=== PATIENT | female | born 1930 | race Caucasian/White ===

== ENCOUNTER → 2016-11-12 | Outpatient (CLI) | payer MEDICARE, OTHER ==
[~2016-11-12] MED LIST: AMLODIPINE BES2.5 MG PO; ASPIRIN EC81 MG PO; CALTRATE 600 +1 EAC1 PO; CENTRUM SILVER1 TAB PO; CYMBALTA60 MG PO; HYDROCODON-ACE1 EAC2 PO; HYDRODIURIL25 MG PO; LYRICA 50MG CAP50 MG PO; MOBIC15 MG PO; PROTONIX20 MG PO; TOPROL XL 5050 MG PO; ZESTRIL40 MG PO
--- NOTE | ~2016-11-12 | ESTC ---
Cardiac Perfusion Imaging Demographics Patient Name TAD Salcido Gender Female Patient Number [id number] Race Visit Number [id number] Ethnicity [employer] ID Room Number Accession Number [id number] Height 63 inches Date of 1930 Weight 152 pounds Patrice Chou MD Interpreting Nate Coto Date of study 11/12/2016 Physician Supervising /REMIGIO NM Technologist Arianne Simmons Ordering Physician Patrice Chou MD reliability technicians Stress ECG Reading Mily Redman APRN Nurse Lamonte Dixon Physician RN Dionne Saravia RN The procedure was explained in detail to the patient. Risks, complications and alternative treatments were reviewed. Written consent was obtained. Medications Reviewed with Patient prior to Procedure. Procedure Procedure Type: Nuclear Stress Test:Pharmacological, Lexiscan, Cardiolite Stress Test Procedure Start time: 11/12/2016 00:00 Indications: Syncope. Risk Factors The patient risk factors include:hypertension. Conclusions Summary Perfusion Images: The overall quality of the study is good. Left ventricular cavity is noted to be normal on the stress and normal on the rest images. There is no evidence of abnormal lung activity. The right ventricle is not visualized an cannot be assessed. Impression ECG portion of lexiscan stress test is clinically negative for ischemia by diagnostic criteria. Myocardial perfusion imaging is normal. Overall left ventricular systolic function was normal without regional wall motion abnormalities. Calculated LVEF is 74% and TID ratio is 1.24. Stress Protocols Resting ECG Normal sinus rhythm. Pre-stress physical exam: Patient assessed by Annabella HERNANDEZ prior to testing. Chest - CTA Cardio - RRR, S1, S2 Predicted HR: 135 bpm HR response: Appropriate BP response: Appropriate Reason for termination:Infusion complete ECG Findings No ECG changes suggestive of ischemia. Arrhythmias No rhythm abnormality. Symptoms No symptoms with Lexiscan infusion. Complications Procedure complication: None. Stress Interpretation Appropriate hemodynamic response to Lexiscan. No significant ST-T wave changes with Lexiscan. ECG portion is negative for ischemia by diagnostic criteria. Will correlate with nuclear images. Imaging Results Applied corrections - Motion correction applied Summed scores - Summed stress score: 4 - Summed rest score: 2 - Summed difference score: 2 Stress ejection Ejection fraction:74 % EDV :74 ml ESV :19 ml Stroke volume :55 ml LV mass :105 gr Imaging Protocols Rest Stress Isotope:Tc99m Sestamibi IV Isotope: Tc99m Sestamibi IV Isotope dose:10.8 mCi Isotope dose:32.37 mCi Date:11/12/2016 07:21 Date:11/12/2016 09:07 Technique: SPECT Technique: Gated Supine SPECT Supine Scan Time:45-60 minutes post Scan Time:45-60 minutes post injection injection Procedure Medications - Regadenoson (Lexiscan) 0.4 mg IV over 10-15 sec. I.V. . Medications administered per verbal order and read back to physician prior to administration. Medical History Admission Data Admission date: 11/12/2016 Admission Time: 06:55 Hospital Status: Outpatient. Signatures dtt: MARY KAY MENDEZ dtd: 11/12/16 0000 Physician Self Edit
== END | disposition disaster alternative care site (69) ==
LOC: GRAD 06:55
DX: R55 Syncope and collapse (principal); I10 Essential (primary) hypertension
CPT/HCPCS: A9500; J2785

== ENCOUNTER 2016-11-21 06:54 | Outpatient (CLI) | payer MEDICARE, OTHER ==
[~2016-11-21] VITALS: Ht 160 cm; Wt 65.1 kg
--- NOTE | ~2016-11-21 | CATH ---
Cardiac Diagnostic Report Demographics Patient Name TAD Salcido Gender Female Date of 1930 Age 86 year(s) Patient Number [id number] Date of Study 11/21/2016 Visit Number [id number] Room Number G63[address] [place] [id number] Ht 160.02 cm Wt 65.1 kg Referring Jessica Chou MD Primary Physician Physician Performing Efstratiou Secondary Physician Physician Kendy Chou MD Diagnostic Efstratiou Assisting Physician Physician Kendy Chou MD Interventional Physician Siphoner Physician Findings and Conclusions Diagnostic Findings and Conclusion R Radial approach impossible due to extreme looping. No significant coronary stenosis. Diagnostic Recommendations Hypertension control. Procedure Description The patient was brought to the diagnostic cardiac catheterization-EP laboratory in the fasting, non-sedated state. Informed consent was obtained in the written and verbal form after the risks and benefits were explained. The patient had no further questions and agreed to proceed. The planned puncture-incision site(s) were shaved and prepped with ChloraPrep and draped in the usual sterile manner. Conscious sedation, supplemental oxygen, and pain control medications were delivered by a registered nurse under physician guidance. Surface ECG rhythm, blood pressure measurement, and pulse oximetry were monitored throughout the procedure. Arterial access. The access site was infiltrated with lidocaine. The vessel was entered with the Seldinger technique. A sheath was advanced into the vessel and used for catheter placement. Selective left coronary angiography. A catheter was advanced into the left coronary vessel ostium under Fluoroscopic guidance. Contrast was injected by hand. Images were obtained in multiple projections. Selective right coronary angiography. A catheter was advanced into the right coronary vessel ostium under fluoroscopic guidance. Contrast was injected by hand. Images were obtained in multiple projections. Arterial artery hemostasis was achieved. The patient was transferred to a regular nursing floor via cart accompanied by a nurse. The patient left the laboratory in stable condition. Diagnostic Cath Status: Elective Procedure Procedure Type Diagnostic procedure:Angiography:, Coronary Angios Indications: Chest pain and Syncope. The procedure was explained in detail to the patient. Risks, complications and alternative treatments were reviewed. Written consent was obtained. Medications Reviewed with Patient prior to Procedure. Angiographic Findings Dominance: Right Cardiac Arteries and Lesion Findings LMCA: Normal (0% Stenosis). LAD: Normal (0% Stenosis). LCx: Normal (0% Stenosis). RCA: Normal (0% Stenosis). Graft Lesions Lesion on : Procedure Data Procedure Date Date: 11/21/2016Start: 09:55 AMEnd: 10:27 AM Entry Locations - Retrograde Percutaneous access was performed through the Right Radial artery. A 6 Fr sheath was inserted. Hemostasis was successfully obtained using Mechanical Compression. Closure Comments: R band deployed by Judd Rebollar with 22 cc air.. - Retrograde Percutaneous access was performed through the Right Femoral artery (Primary location). A 6 Fr sheath was inserted. Hemostasis was successfully obtained using Angio-Seal STS PLUS (St. Dinesh). Closure Comments: Deployed by Dr. Ibrahim.. Procedure Medications Order and Administration + + +-------+-------+ !Time !Medication !Dosage !Route ! + + +-------+-------+ !11/21/2016 !Fentanyl !25 mcg !I.V. ! !09:55 AM ! ! ! ! + + +-------+-------+ !11/21/2016 !PAE Radial Cocktail: Heparin 5000 units, ! !I.A. ! !09:58 AM !Nitroglycerin 200mcg, Verapamil 3 mg ! ! ! ! !(ACC_3) ! ! ! + + +-------+-------+ !11/21/2016 !Fentanyl !25 mcg !I.V. ! !10:13 AM ! ! ! ! + + +-------+-------+ !11/21/2016 !Oxygen !2 l/min!NC ! !10:13 AM ! ! ! ! + + +-------+-------+ Devices Used - A6 Fr. BS JR 4 Diag. Catheterwas used for:Right coronary angiography. - A4 Fr. Straight Glidecathwas used for:Upper Extremity. - A6 Fr. BS JR 4 Diag. Catheterwas used for:Right coronary angiography. - A6 Fr. BS JL 3.5 Diag. Catheterwas used for:Left coronary angiography. Contrast Material - Isovue 62640 ml Fluoroscopy Time: Diagnostic: 6:24 minutes. Total: 6:24 minutes. Fluoroscopy Dose: Diagnostic: 229 mGy. Total: 229 mGy. Estimated Blood Loss: 20 ml. Medical History Performed Procedures and Imaging Results - Stress testing with SPECT MPIwas performed. Results were: Positive. Risk/Extent of ischemia was: Intermediate risk. Allergies - Other:(Tramadol Levofloxacin). Risk Factors The patient risk factors include:hypertension, last creatinine: 1.1 mg/dl and creatinine clearance: 38.43 ml/min. Admission Data Admission Date: 11/21/2016 Admission Time: 06:54 AM Admit Source: Other Insurance Payors: Medicare. Admission Medications + +------+------+ + + + + !Medication !Dosage!Times !Last !Last !Administered !Comments ! ! ! !Per !Delivery !Delivery ! ! ! ! ! !Day !Date !Time ! ! ! + +------+------+ + + + + !Beta Adriel! ! ! ! ! ! ! !(any) ! ! ! ! ! ! ! + +------+------+ + + + + !NURIA ! ! ! ! ! ! ! !Inhibitor ! ! ! ! ! ! ! !(any) ! ! ! ! ! ! ! + +------+------+ + + + + !Aspirin ! ! ! ! ! ! ! !(any) ! ! ! ! ! ! ! + +------+------+ + + + + Clinical Evaluation Leading to Procedure - There were no CAD presentation symptoms. - There were no anginal symptoms. Anti-anginal medications were prescribed during the past two weeks. The medications are: Beta Blockers and Ca channel Blockers. Snapshots Hemodynamics Condition: Rest O2 Consumption: Estimated: 148.20Heart Rate: 68 bpm Pressures (mmHg) +-----+ + !Site !Pressure ! +-----+ + !AO !169/56 (100) ! +-----+ + Shunts Oxygen Values O2 Capacity 148.24 O2 Consumption 148.2 Discharge Data Discharge Date: 11/21/2016 Hospital Status: Outpatient Signatures dtt: Mallory Ibrahim dtd: 11/21/16 0955 Physician Self Edit
[2016-11-21 07:54] LABS: BASOPHIL % 0.5 %; HEMATOCRIT 31.9 % (30.0-46.0); HEMOGLOBIN 10.9 g/dL (10.0-15.0); LYMPHOCYTE # 0.9 K/uL (0.8-4.0); LYMPHOCYTE % 24.3 %; MCH 30.9 pg (27.0-34.0); MCHC 34.2 gm/dL (32.0-36.5); MCV 90.4 fl (83.0-98.0); MONOCYTE # 0.5 K/uL (0.0-1.0); MONOCYTE % 13.4 %; MPV 9.4 fl (9.4-12.4); NEUTROPHIL # (ANC) 2.3 K/uL (1.8-7.8); NEUTROPHIL % 61.8 %; NRBC % 0 /100WBC (0-0.00); PLATELET COUNT 140 K/uL (150-450); RBC 3.53 M/uL (3.00-5.00); RDW-CV 12.2 % (11.9-14.6); WBC 3.7 K/uL (4.0-11.0)
[2016-11-21 08:03] LABS: INR - (THERAPEUTIC) 0.99 (0.92-1.07); PROTIME 10.4 SECONDS (9.8-11.4); PTT 24 SECONDS (25-32)
[2016-11-21 08:10] LABS: ALBUMIN 3.3 gm/dL (3.5-5.0); ANION GAP 10.4 (10.0-19.0); CALCIUM 8.4 mg/dL (8.5-10.5); CREATININE 1.1 mg/dL (0.5-1.1); POTASSIUM 4.4 mMol/L (3.7-5.1); TOTAL BILIRUBIN 0.5 mg/dL (0.0-1.5); TOTAL PROTEIN 5.9 g/dL (6.0-8.4)
== END 2016-11-21 12:40 | disposition disaster alternative care site (69) ==
LOC: GPOC 06:54 → GPCU 06:54 → GPOC 07:00
PROVIDERS: Internal Medicine Cardiovascular Disease
PROC: 4A023N7 Measurement of Cardiac Sampling and Pressure, Left Heart, Percutaneous Approach (ICD-10-PCS; principal; 2016-11-21)
PROC: B216YZZ Fluoroscopy of Right and Left Heart using Other Contrast (ICD-10-PCS; 2016-11-21)
DX: R07.9 Chest pain, unspecified (principal); R55 Syncope and collapse; Z88.1 Allergy status to other antibiotic agents; Z88.8 Allergy status to other drugs, medicaments and biological substances
CPT/HCPCS: C1760; C1769; C1887; C1894; J1644; J2001; J3010; J7030

== ENCOUNTER → 2016-12-22 | Day surgery (SDC) | payer MEDICARE, OTHER ==
[~2016-12-22] VITALS: Ht 160 cm; Wt 67.0 kg
--- NOTE | ~2016-12-22 | OR ---
PATIENT'S NAME: SHON MISHRA [facility] AGE: 86 Y [address] ROOM: [place] [address] LOCATION: [facility] [place] [facility] [place] ADMIT DATE: 12/22/2016 OR/Procedure Report DISCHARGE DATE: FAMILY PHYSICIAN: Shar Lopez MD ATTENDING PHYSICIAN: Nathan Todd SURGEON: Nathan Todd DO CUSTOMER SERVICE PROFESSIONAL: DATE OF PROCEDURE: 12/22/2016 PREOPERATIVE DIAGNOSIS: Syncope. POSTOPERATIVE DIAGNOSIS: Syncope. PROCEDURE: Insertion of loop recorder. BRIEF HISTORY: Mrs. Mishra is an 86-year-old white female with above-noted diagnosis. She has been brought to the operative suite today for placement for loop recorder. After appropriate IV sedation was achieved, the chest tube and sterilely prepped and draped. 1% lidocaine was used to infiltrate small skin wheal and with the deeper tissues at approximately 2 cm to the left of the angle of Franco. Incision was made and the loop recorder was inserted underneath into the subcutaneous space with provided injection and replacement device. The incision was then closed with two butterfly straps and a dressing was applied. The patient tolerated the procedure well and was transferred outpatient recovery room in stable condition for activation by the [employer] assisted sales representative. NATHAN TODD DO MCB/modl /[id number] d: 12/23/16 1210 t: 12/24/16 1203, OPERATIVE SUMMARY
[2016-12-22 08:46] LABS: INR - (THERAPEUTIC) 0.96 (0.92-1.07); PROTIME 10.1 SECONDS (9.8-11.4)
[2016-12-22 08:58] LABS: ALBUMIN 3.5 gm/dL (3.5-5.0); CALCIUM 8.6 mg/dL (8.5-10.5); CREATININE 0.9 mg/dL (0.5-1.1); PHOSPHORUS 3.5 mg/dL (2.5-4.9)
== END | disposition disaster alternative care site (69) ==
LOC: GPOC 12-18 17:00 → GSDC 07:54
PROVIDERS: Thoracic Surgery (Cardiothoracic Vascular Surgery)
PROC: 0JH602Z Insertion of Monitoring Device into Chest Subcutaneous Tissue and Fascia, Open Approach (ICD-10-PCS; principal; 2016-12-22)
DX: R55 Syncope and collapse (principal); M81.0 Age-related osteoporosis without current pathological fracture; M19.049 Primary osteoarthritis, unspecified hand; F41.9 Anxiety disorder, unspecified; F32.9 Major depressive disorder, single episode, unspecified; I10 Essential (primary) hypertension; K21.9 Gastro-esophageal reflux disease without esophagitis; M47.816 Spondylosis without myelopathy or radiculopathy, lumbar region; Z90.710 Acquired absence of both cervix and uterus; Z98.890 Other specified postprocedural states; Z79.82 Long term (current) use of aspirin; Z79.899 Other long term (current) drug therapy; Z88.5 Allergy status to narcotic agent; Z88.8 Allergy status to other drugs, medicaments and biological substances
CPT/HCPCS: J0690; J2001; J7030

== ENCOUNTER → 2017-01-05 | Outpatient (CLI) | payer MEDICARE, OTHER | END | disposition disaster alternative care site (69) | LOC: LNHI 16:32 | DX: G47.62 Sleep related leg cramps (principal) ==